=== PATIENT | male | born 2005 | race African-American/Black ===

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

== ENCOUNTER 2023-04-07 16:31 | Inpatient (IN) | payer BC ==
--- NOTE | 2023-04-07 16:37 | ED ---
Psych HPI - General Source: patient, RN notes reviewed Mode of arrival: ambulatory Limitations: no limitations - History of Present Illness MD Complaint: suicidal ideation <Laura Cook - Last Filed: 04/07/23 16:33> - General Source: patient, RN notes reviewed Mode of arrival: ambulatory Limitations: no limitations <Mark Sky - Last Filed: 04/07/23 20:02> - General Chief Complaint: Psychiatric Symptoms Stated Complaint: Suicidal Time Seen by Provider: 04/07/23 16:33 - History of Present Illness Initial Comments: This is a 17 year old male who presents to the emergency department for suicidal ideations. Denies any specific plans, states that he would do whatever comes to mind. This has been a long standing issue for him. (Laura Cook) Patient is a pleasant 17-year-old male presenting to the emergency department with depression. Patient has been depressed for a long time. Patient has felt more suicidal recently. Patient did put a knife up to his throat with thoughts of cutting himself. Patient did not cut himself. No homicidal thoughts. Patient has been taking his medications. Patient occasionally sees flashes and are unclear what they are. No physical complaints. (Mark Sky) - Related Data Home Medications Medication Instructions Recorded Confirmed ARIPiprazole [Abilify] 5 mg PO HS 04/07/23 04/07/23 Sertraline HCl [Zoloft] 50 mg PO DAILY 04/07/23 04/07/23 Allergies Allergy/AdvReac Type Severity Reaction Status Date / Time No Known Allergies Allergy Verified 04/07/23 16:33 Review of Systems ROS Other: All systems not noted in ROS Statement are negative. <Laura Cook - Last Filed: 04/07/23 16:33> ROS Other: All systems not noted in ROS Statement are negative. Constitutional: Denies: fever Eyes: Denies: eye pain ENT: Denies: ear pain Respiratory: Denies: cough Cardiovascular: Denies: chest pain Psychiatric: Reports: as per HPI, depression, suicidal thoughts <Mark Sky - Last Filed: 04/07/23 20:02> ROS Statement: Those systems with pertinent positive or pertinent negative responses have been documented in the HPI. Past Medical History Past Medical History: No Reported History History of Any Multi-Drug Resistant Organisms: None Reported Past Surgical History: No Surgical Hx Reported Past Psychological History: Depression Past Alcohol Use History: None Reported Past Drug Use History: None Reported <Laura Cook - Last Filed: 04/07/23 16:33> General Exam <Laura Cook - Last Filed: 04/07/23 16:33> Limitations: no limitations General appearance: alert Head exam: Present: normocephalic Eye exam: Present: normal appearance Neck exam: Present: normal inspection Respiratory exam: Present: normal lung sounds bilaterally Cardiovascular Exam: Present: regular rate, normal rhythm GI/Abdominal exam: Present: soft. Absent: tenderness Extremities exam: Present: normal inspection Neurological exam: Present: alert. Absent: motor sensory deficit Psychiatric exam: Present: depressed Skin exam: Present: normal color. Absent: abrasion <Mark Sky - Last Filed: 04/07/23 20:02> - General Exam Comments Initial Comments: Visual Physical Exam Vital signs reviewed General: Well-appearing, nontoxic, no acute distress. Head: Normocephalic, atraumatic Eyes: PERRLA, EOMI ENT: Airway patent Chest: Nonlabored breathing Skin: No visual rash, normal skin tone Neuro: Alert and oriented 3 Musculoskeletal: No gross abnormalities I performed the QuickNote portion of this chart. Signed Laura Cook PA-C. (Laura Cook) Course Vital Signs 04/07/23 16:33 Temperature 97.7 F Pulse Rate 96 Respiratory 16 Rate Blood Pressure 141/90 O2 Sat by Pulse 96 Oximetry Medical Decision Making <Mark Sky - Last Filed: 04/07/23 20:02> - Medical Decision Making Was pt. sent in by a medical professional or institution (JULIANA Barahona, [employer], urgent care, hospital, or group home...) When possible be specific @ -No Did you speak to anyone other than the patient for history (EMS, parent, family, police, friend...)? What history was obtained from this source @ -No Did you review nursing and triage notes (agree or disagree)? Why? @ -I reviewed and agree with nursing and triage notes Were old charts reviewed (outside hosp., previous admission, EMS record, old EKG, old radiological studies, urgent care reports/EKG's, group home records)? Report findings @ -No old charts were reviewed Differential Diagnosis (chest pain, altered mental status, abdominal pain women, abdominal pain men, vaginal bleeding, weakness, fever, dyspnea, syncope, headache, dizziness, GI bleed, back pain, seizure, CVA, palpatations, mental health, musculoskeletal)? @ -Differential Mental Health Depression, anxiety, bipolar, psychosis, schizophrenia, borderline personality, situational depression, adjustment disorder, behavioral disorder, brain tumor, malingering, substance abuse, encephalopathy, medication reaction, dementia, hypothyroidism, degenerative neurologic disorder, lupus.... This is not meant to be all-inclusive list EKG interpreted by me (3pts min.). @ -As above X-rays interpreted by me (1pt min.). @ -None done CT interpreted by me (1pt min.). @ -None done U/S interpreted by me (1pt. min.). @ -None done What testing was considered but not performed or refused? (CT, X-rays, U/S, labs)? Why? @ -None What meds were considered but not given or refused? Why? @ -None Did you discuss the management of the patient with other professionals (india patterson i.e. , PA, H[employer]ER, lab, RT, psych nurse, social science instructor, clay thrower, teacher, employment officer, behavioral health case manager)? Give summary @ -Case was discussed with mental health nurse, plan and disposition. Was smoking cessation discussed for >3mins.? @ -No Was critical care preformed (if so, how long)? @ -No Were there social determinants of health that impacted care today? How? (Homelessness, low income, unemployed, alcoholism, drug addiction, transportation, low edu. Level, literacy, decrease access to med. care, intermediate, rehab)? @ -No Was there de-escalation of care discussed even if they declined (Discuss DNR or withdrawal of care, Hospice)? DNR status @ -No What co-morbidities impacted this encounter? (DM, HTN, Smoking, COPD, CAD, Cancer, CVA, ARF, Chemo, Hep., AIDS, mental health diagnosis, sleep apnea, morbid obesity)? @ -None Was patient admitted / discharged? Hospital course, mention meds given and route, prescriptions, significant lab abnormalities, going to OR and other pertinent info. @ -Patient will be admitted for mental health care. Undiagnosed new problem with uncertain prognosis? @ -No Drug Therapy requiring intensive monitoring for toxicity (Heparin, Nitro, Insulin, Cardizem)? @ -No Were any procedures done? @ -No Diagnosis/symptom? @ -Depression, suicidal ideation Acute, or Chronic, or Acute on Chronic? @ -Acute, acute Uncomplicated (without systemic symptoms) or Complicated (systemic symptoms)? @ -default Side effects of treatment? @ -No Exacerbation, Progression, or Severe Exacerbation? @ -No Poses a threat to life or bodily function? How? (Chest pain, USA, PA, pneumonia, PE, COPD, DKA, ARF, appy, cholecystitis, CVA, Diverticulitis, Homicidal, Suicidal, threat to staff... and all critical care pts) @ -No (Mark Sky) - Lab Data Lab Results 04/07/23 Range/Units 17:46 Urine Opiates Screen Not Detected (NotDetected) Ur Oxycodone Screen Not Detected (NotDetected) Urine Methadone Screen Not Detected (NotDetected) Ur Propoxyphene Screen Not Detected (NotDetected) Ur Barbiturates Screen Not Detected (NotDetected) U Tricyclic Antidepress Not Detected (NotDetected) Ur Phencyclidine Scrn Not Detected (NotDetected) Ur Amphetamines Screen Not Detected (NotDetected) U Methamphetamines Scrn Not Detected (NotDetected) U Benzodiazepines Scrn Not Detected (NotDetected) Urine Cocaine Screen Not Detected (NotDetected) U Marijuana (THC) Screen Detected H (NotDetected) Disposition <Laura Cook - Last Filed: 04/07/23 16:33> Is patient prescribed a controlled substance at d/c from ED?: No Time of Disposition: 20:02 <Mark Sky - Last Filed: 04/07/23 20:02> Clinical Impression: Depression, Suicidal ideation Disposition: TRANSFER TO PSYCH HOSP/UNIT Referrals: Varinder Davis DO [Primary Care Provider] - 1-2 days
[2023-04-07 18:15] LABS: Amphetamine Screen,Urine Not Detected (NotDetected); Barbiturate Screen,Urine Not Detected (NotDetected); Benzodiazepines Screen,Urine Not Detected (NotDetected); Cocaine Screen,Urine Not Detected (NotDetected); Methadone Screen, Urine Not Detected (NotDetected); Opiate Screen,Urine Not Detected (NotDetected); Oxycodone Screen, Urine Not Detected (NotDetected); Phencyclidine Screen,Urine Not Detected (NotDetected); Tricyclic Antidepressant,Urine Not Detected (NotDetected); Urn Cannabinoid Scrn Detected (NotDetected)
[2023-04-07] MEDS ORDERED: ACETAMINOPHEN TAB 325 MG TAB PO PRN (22:17)
[2023-04-07] MEDS ORDERED: LORazepam 1 MG TAB PO PRN (22:17)
[2023-04-07] MEDS ORDERED: MAG HYDROX/AL HYDROX/SIMETH 30 ML CUP PO PRN (22:17)
[2023-04-07] MEDS ORDERED: LORazepam 2 MG/ML INJ IM PRN (22:17)
[2023-04-07] MEDS ORDERED: traZODone HCL 50 MG TAB PO PRN (22:17)
[2023-04-07] MEDS ORDERED: MAGNESIUM HYDROXIDE 2,400 MG/30 ML CUP PO PRN (22:17)
[2023-04-07 23:07] LABS: Amorphous Sediment,Urine Occasional /hpf; Appearance,Urine Cloudy (Clear); Bilirubin,Urine Negative (Negative); Blood,Urine Negative (Negative); Color,Urine Yellow; Glucose,Urine (UA) Negative (Negative); Hyaline Casts,Urine 1 /lpf (0-2); Ketones,Urine Negative (Negative); Leukocyte Esterase,Urine Negative (Negative); Mucus,Urine Few /hpf; Nitrite,Urine Negative (Negative); Protein,Urine Negative (Negative); Specific Gravity,Urine 1.027 (1.001-1.035); Urobilinogen,Urine <2.0 mg/dL (<2.0); WBC,Urine 1 /hpf (0-5)
[2023-04-08] MEDS ORDERED: SERTRALINE 50 MG TAB PO SCH (09:00)
[2023-04-08 09:38] LABS: Basophils % (A) 0 %; Eosinophils # (A) 0.1 k/uL (0-0.7); Eosinophils % (A) 2 %; HCT 47.1 % (39.0-53.0); HGB 14.5 gm/dL (13.0-17.5); Hypochromasia Slight; Lymphocytes # (A) 2.5 k/uL (1.0-4.8); Lymphocytes % (A) 43 %; MCH 27.8 pg (25.0-35.0); MCHC 30.9 g/dL (31.0-37.0); MCV 90.1 fL (80.0-100.0); Monocytes # (A) 0.3 k/uL (0-1.0); Monocytes % (A) 6 %; Neutrophils # (A) 2.7 k/uL (1.3-7.7); Neutrophils % (A) 47 %; Platelet Count 316 k/uL (150-450); RBC 5.23 m/uL (4.30-5.90); RDW 14.7 % (11.5-15.5); WBC 5.7 k/uL (4.0-11.0)
[2023-04-08 10:02] LABS: ALT 14 U/L (4-49); AST 21 U/L (17-59); African American GFR (CKD) >90 (>60 ml/min/1.73 sqM); Albumin 4.6 g/dL (3.5-5.0); Alkaline Phosphatase 82 U/L (38-126); Anion Gap 11 mmol/L; Bilirubin, Delta 0.2 mg/dL (0.0-0.2); Bilirubin,Unconjugated 0.1 mg/dL (0.0-1.1); Blood Urea Nitrogen 11 mg/dL (9-20); Calcium 9.3 mg/dL (8.4-10.2); Carbon Dioxide 28 mmol/L (22-30); Chloride 101 mmol/L (98-107); Glucose 106 mg/dL (74-99); Non-African American GFR(CKD) >90 (>60 ml/min/1.73 sqM); Potassium 4.3 mmol/L (3.5-5.1); Sodium 140 mmol/L (137-145); Total Bilirubin 0.3 mg/dL (0.2-1.3); Total Protein 8.5 g/dL (6.3-8.2)
[2023-04-08] MEDS ORDERED: SERTRALINE 25 MG TAB PO ONE (11:45)
--- NOTE | 2023-04-08 11:52 | P.MDCNMH ---
History of Present Illness H&P Date: 04/08/23 This is a 17-year-old male who presented to the emergency department with increasing thoughts of suicidal ideation with no real plan. Patient admitted voluntarily to the mental health unit for further psychiatric evaluation. Patient reports he follows with Dr. Dawn Argueta in the outpatient setting with no significant past medical history other than depression. Patient reports he does not use alcohol or drugs and denies smoking. Patient's urine drug screen was positive for marijuana. Patient's other labs reviewed and within normal limits. Patient was taking Zoloft and Abilify outpatient and reports he was compliant with medications. Patient reports he has not seen Dr. Dawn meadows in quite some time. When asked if patient follows with [facility] he reported it was Dr. Davis. Vital signs reviewed and blood pressure mildly elevated will obtain EKG and other labs within normal limits. Patient denies chest pain or shortness of breath reports is tolerating diet with no reported nausea or vomiting. Patient reports to going to the bathroom with no difficulties and denies any burning or pain with urination. Review Of Systems: Constitutional: No fever, no chills, no night sweats. No weight change. No weakness, fatigue or lethargy. No daytime sleepiness. EENT: No headache. No blurred vision or double vision, no loss of vision. No loss of Hearing, no ringing in the ears, no dizziness. No nasal drainage or congestion. No epistaxis. No sore throat. Lungs: No shortness of breath, cough, no sputum production. No wheezing. Cardiovascular: No chest pain, no lower extremity edema. No palpitations. No paroxysmal nocturnal dyspnea. No orthopnea. No lightheadedness or dizziness. No syncopal episodes. Abdominal: No abdominal pain. No nausea, vomiting. No diarrhea. No constipation. No bloody or tarry stools.. No loss of appetite. Genitourinary: No dysuria, increased frequency, urgency. No urinary retention. Musculoskeletal: No myalgias. No muscle weakness, no gait dysfunction, no frequent falls. No back pain. No neck pain. Integumentary: No wounds, no lesions. No rash or pruritus. No unusual bruising. No change in hair or nails. Neurologic: No aphasia. No facial droop. No change in mentation. No head injury. No headache. No paralysis. No paresthesia. Psychiatric: Reports increased depression with suicidal ideation. Reports anxiety. No mood swings. Endocrine: No abnormal blood sugars. No weight change. No excessive sweating or thirst. No cold intolerance. PHYSICAL EXAMINATION: GENERAL: The patient is alert and oriented x4, Well developed, well nourished. Obese HEENT: Pupils are round and equally reacting to light. EOMI. no scleral icterus. No conjunctival pallor. Normocephalic, atraumatic. No pharyngeal erythema. No t hyromegaly. CARDIOVASCULAR: S1 and S2 muffled PULMONARY: Breath sounds are clear to auscultation bilaterally with no wheezing or rhonchi noted. ABDOMEN: soft. Nontender on exam. obese. non-distended, normoactive bowel sounds. No palpable organomegaly. MUSCULOSKELETAL: No joint swelling or deformity. EXTREMITIES: No cyanosis, clubbing, or pedal edema. NEUROLOGICAL: Gross neurological examination did not reveal any focal deficits. SKIN: No rashes. Assessment: Depression with suicidal ideation. History of depression Obesity with a BMI of 38.0 Marijuana positive on drug screen Full code Plan: Patient is admitted voluntarily to the [facility] psychiatric unit for further evaluation for suicidal ideation Patient's labs reviewed within normal limits and blood pressure mildly elevated would recommend EKG and basic labs, TSH ordered and pending Patient encouraged to attend group therapy sessions and compliance with medications along with psychiatric evaluation Patient urine drug screen was positive for marijuana although patient denies using any drugs Thank you for this consultation. The impression and plan of care has been dictated by nurse josephine Lemon as directed. Dr. Andressa MD I have performed a history and examination and MDM of this patient, discussed the same with the dictator, and agree with the dictator's assessment and plan as written ,documented as a scribe. Based on total visit time, I have performed more than 50% of the visit. Any additional findings or plans will be noted. Past Medical History Past Medical History: No Reported History Additional Past Medical History / Comment(s): suicidal ideation History of Any Multi-Drug Resistant Organisms: None Reported Past Surgical History: No Surgical Hx Reported Past Psychological History: Depression Smoking Status: Never smoker Past Alcohol Use History: None Reported Past Drug Use History: None Reported Medications and Allergies Home Medications Medication Instructions Recorded Confirmed Type ARIPiprazole [Abilify] 5 mg PO HS 04/07/23 04/07/23 History Sertraline HCl [Zoloft] 50 mg PO DAILY 04/07/23 04/07/23 History Allergies Allergy/AdvReac Type Severity Reaction Status Date / Time No Known Allergies Allergy Verified 04/08/23 03:50 Physical Exam Vitals: Vital Signs Temp Pulse Pulse Resp BP BP Pulse Ox 04/07/23 23:37 98.0 F 69 18 130/60 96 04/07/23 16:33 97.7 F 96 16 141/90 96 Intake and Output 04/07/23 04/08/23 04/08/23 22:59 06:59 14:59 Other: Weight 113.398 kg 113.398 kg Cranial Nerve Examination - Cranial Nerves Cranial Nerve I- Olfactory: Intact Cranial Nerve II- Optic: Intact Cranial Nerve III- Oculomotor: Intact Cranial Nerve IV- Trochlear: Intact Cranial Nerve V- Trigeminal: Intact Cranial Nerve - Abducens: Intact Cranial Nerve VII- Facial: Intact Cranial Nerve VIII- Auditory: Intact Cranial Nerve IX- Glossopharyngeal: Intact Cranial Nerve X- Vagus: Intact Cranial Nerve XI- Accessory: Intact Cranial Nerve XII- Hypoglossal: Intact Results CBC & Chem 7: 04/08/23 08:35 04/08/23 08:35 Labs: Abnormal Lab Results - Last 24 Hours (Table) 04/07/23 04/07/23 Range/Units 17:46 17:46 Amorphous Sediment Occasional H (None) /hpf Urine Mucus Few H (None) /hpf U Marijuana (THC) Screen Detected H (NotDetected) Assessment and Plan Time with Patient: Less than 30
[2023-04-08] MEDS: ZIPRASIDONE 20 MG CAP PO SCH ×2 (13:21→21:09)
--- NOTE | 2023-04-08 13:56 | P.HP ---
Psychiatric H&P - . H&P Date: 04/08/23 History & Physical: Allergies Allergy/AdvReac Type Severity Reaction Status Date / Time No Known Allergies Allergy Verified 04/08/23 03:50 Vital Signs Temp 98.0 F 04/07/23 23:37 Pulse 69 04/07/23 23:37 Resp 18 04/07/23 23:37 BP 130/60 04/07/23 23:37 Pulse Ox 96 04/07/23 23:37 FiO2 Intake & Output 04/07/23 04/08/23 04/08/23 18:59 06:59 18:59 Weight 113.398 kg 113.398 kg Laboratory Last Values WBC 5.7 k/uL (4.0-11.0) 04/08/23 08:35 RBC 5.23 m/uL (4.30-5.90) 04/08/23 08:35 Hgb 14.5 gm/dL (13.0-17.5) 04/08/23 08:35 Hct 47.1 % (39.0-53.0) 04/08/23 08:35 MCV 90.1 fL (80.0-100.0) 04/08/23 08:35 MCH 27.8 pg (25.0-35.0) 04/08/23 08:35 MCHC 30.9 g/dL (31.0-37.0) L 04/08/23 08:35 RDW 14.7 % (11.5-15.5) 04/08/23 08:35 Plt Count 316 k/uL (150-450) 04/08/23 08:35 MPV 8.0 04/08/23 08:35 Neutrophils % 47 % 04/08/23 08:35 Lymphocytes % 43 % 04/08/23 08:35 Monocytes % 6 % 04/08/23 08:35 Eosinophils % 2 % 04/08/23 08:35 Basophils % 0 % 04/08/23 08:35 Neutrophils # 2.7 k/uL (1.3-7.7) 04/08/23 08:35 Lymphocytes # 2.5 k/uL (1.0-4.8) 04/08/23 08:35 Monocytes # 0.3 k/uL (0-1.0) 04/08/23 08:35 Eosinophils # 0.1 k/uL (0-0.7) 04/08/23 08:35 Basophils # 0.0 k/uL (0-0.2) 04/08/23 08:35 Hypochromasia Slight 04/08/23 08:35 Sodium 140 mmol/L (137-145) 04/08/23 08:35 Potassium 4.3 mmol/L (3.5-5.1) 04/08/23 08:35 Chloride 101 mmol/L (98-107) 04/08/23 08:35 Carbon Dioxide 28 mmol/L (22-30) 04/08/23 08:35 Anion Gap 11 mmol/L 04/08/23 08:35 BUN 11 mg/dL (9-20) 04/08/23 08:35 Creatinine 0.81 mg/dL (0.66-1.25) 04/08/23 08:35 Est GFR (CKD-EPI)AfAm >90 (>60 ml/min/1.73 sqM) 04/08/23 08:35 Est GFR (CKD-EPI)NonAf >90 (>60 ml/min/1.73 sqM) 04/08/23 08:35 Glucose 106 mg/dL (74-99) H 04/08/23 08:35 Calcium 9.3 mg/dL (8.4-10.2) 04/08/23 08:35 Total Bilirubin 0.3 mg/dL (0.2-1.3) 04/08/23 08:35 Conjugated Bilirubin 0.0 mg/dL (0.0-0.3) 04/08/23 08:35 Unconjugated Bilirubin 0.1 mg/dL (0.0-1.1) 04/08/23 08:35 Delta Bilirubin 0.2 mg/dL (0.0-0.2) 04/08/23 08:35 AST 21 U/L (17-59) 04/08/23 08:35 ALT 14 U/L (4-49) 04/08/23 08:35 Alkaline Phosphatase 82 U/L (38-126) 04/08/23 08:35 Total Protein 8.5 g/dL (6.3-8.2) H 04/08/23 08:35 Albumin 4.6 g/dL (3.5-5.0) 04/08/23 08:35 TSH 3.200 mIU/L (0.465-4.680) 04/08/23 08:35 Urine Color Yellow 04/07/23 17:46 Urine Appearance Cloudy (Clear) 04/07/23 17:46 Urine pH 7.0 (5.0-8.0) 04/07/23 17:46 Ur Specific [place] 1.027 (1.001-1.035) 04/07/23 17:46 Urine Protein Negative (Negative) 04/07/23 17:46 Urine Glucose (UA) Negative (Negative) 04/07/23 17:46 Urine Ketones Negative (Negative) 04/07/23 17:46 Urine Blood Negative (Negative) 04/07/23 17:46 Urine Nitrite Negative (Negative) 04/07/23 17:46 Urine Bilirubin Negative (Negative) 04/07/23 17:46 Urine Urobilinogen <2.0 mg/dL (<2.0) 04/07/23 17:46 Ur Leukocyte Esterase Negative (Negative) 04/07/23 17:46 Urine WBC 1 /hpf (0-5) 04/07/23 17:46 Amorphous Sediment Occasional /hpf (None) H 04/07/23 17:46 Hyaline Casts 1 /lpf (0-2) 04/07/23 17:46 Urine Mucus Few /hpf (None) H 04/07/23 17:46 Urine Opiates Screen Not Detected (NotDetected) 04/07/23 17:46 Ur Oxycodone Screen Not Detected (NotDetected) 04/07/23 17:46 Urine Methadone Screen Not Detected (NotDetected) 04/07/23 17:46 Ur Propoxyphene Screen Not Detected (NotDetected) 04/07/23 17:46 Ur Barbiturates Screen Not Detected (NotDetected) 04/07/23 17:46 U Tricyclic Antidepress Not Detected (NotDetected) 04/07/23 17:46 Ur Phencyclidine Scrn Not Detected (NotDetected) 04/07/23 17:46 Ur Amphetamines Screen Not Detected (NotDetected) 04/07/23 17:46 U Methamphetamines Scrn Not Detected (NotDetected) 04/07/23 17:46 U Benzodiazepines Scrn Not Detected (NotDetected) 04/07/23 17:46 Urine Cocaine Screen Not Detected (NotDetected) 04/07/23 17:46 U Marijuana (THC) Screen Detected (NotDetected) H 04/07/23 17:46 Coronavirus (PCR) Not Detected (Not Detectd) 04/07/23 20:15 04/08/23 11:45 IDENTIFYING DATA: Patient is a [17-year-old -[place] male], currently lives with his grandmother in a house, he works in a factory. HPI: Patient presented to the hospital yesterday and was endorsing depression and suicidal ideations and apparently pulled a knife on himself while at work. Patient was seen today in agreeable to speak to movie writer. Patient appeared to be fairly friendly and pleasant. He has an inappropriate affect when speaking about his depression and suicidal thoughts. He claims he has been feeling depressed and suicidal on and off her several years now. He claims that his main trigger was "being outdoors" and when asked to elaborate more he states that being in public and other people is fairly stressful for him. He claims that at his job he pulled a knife out on himself and try to cut himself in his throat. He states that his coworkers stopped him and took him to human resources who called to have him brought to the hospital. He states that things at home are okay and denied any issues with his family members. He does not endorse any other stressors. He claims that his mood is "calmer and cooperative" and denying any current depression. He states that he does have trouble sometimes with impulse control. States that his sleep and appetite are fair. Patient denies any suicidal or homicidal ideations intent or plan. At this time patient denies any auditory or visual hallucinations. Patient denies any flight of ideas racing thoughts and increased in goal directed behavior. Patient admits to using no recreational drugs or substances PAST PSYCHIATRIC HISTORY: Patient states that he has a history of depression and anxiety. Patient was previously on Abilify and Zoloft. He was last psychiatrically hospitalized at [facility] in 2019 and previous to that hospitalized at [facility] in 2018. [Patient denies any psychiatric outpatient follow-up.] [Patient denies any history of suicide attempts in the past.] PMH:as per ED note ALLERGIES: as per EMR CHEMICAL DEPENDENCY HISTORY: as per HPI FAMILY PSYCHIATRIC/SUBSTANCE USE HISTORY: Claims that there is depression that runs in his family. SOCIAL HISTORY: Patient was born and raised in [facility] and states that he currently lives with his grandmother in a house, he works in a factory. He is single and unmarried. He denies any legal history. MENTAL STATUS EXAM: General Appearance: Patient appears to be mildly overweight, stated age is alert, [directable, and attempts to cooperate]. Smiles quite frequently, Patient appears to have fair hygiene and grooming. Behavior: Patient is seated without any agitated behavior. Bright and pleasant. Speech: Patient's speech is [fluent and nonpressured.] [place]. Mood/Affect: Patient reports their mood is ["calmer now"], affect is congruent Suicidality/Homicidality: Patient denies having any homicidal ideation intent or plan. [Denies any suicidal ideations intent or plan] Perceptions: Patient denies any visual hallucinations [and denies any auditory hallucinations] Though content/process: [There is no evidence of any delusional thought content and thought process is linear and goal-directed.] [place], vague. Memory and concentration: AOX3, grossly intact for the purposes of this session. Can spell "WORLD" backwards Judgment and insight: [poor] STRENGTHS/WEAKNESSES: strength is that patient is [resilient]. Weakness is that patient [has poor judgment and is impulsive] INTELLECT: [average] IMPRESSIONS: Mood disorder unspecified, rule out bipolar disorder versus major depressive PLAN: -Patient is admitted under [voluntary] status to MHU for stabilization of psychiatric symptoms and safety. Patient has signed [adult voluntary form and] [medication consent] and is placed in patient's chart. -Medications : zoloft 75 mg daily for mood/anxiety, geodon 20 mg bid for mood stabilization. ordered ekg -Ativan [and Haldol] PRN for agitation/aggression [-Patient was counselled on substance abuse and desired to cut back on use] -Patient was informed of the risks, benefits and side effects of the medication and patient verbally consented to taking the medications. Patient signed med consent form and was placed in chart. -Internal Medicine consult to perform medical evaluation and physical. -NRT - not needed as patient does not smoke -SW on board for discharge planning. Encourage patient to participate in groups to work on coping skills. 04/08/23 13:50 04/08/23 13:55
[2023-04-08 15:51] LABS: Chol/HDL Ratio 3.53 Ratio; LDL Cholesterol,Calculated 92.3 mg/dL (0.0-131.0)
[2023-04-09] MEDS ORDERED: SERTRALINE 25 MG TAB PO SCH (09:00)
[2023-04-09] MEDS: ZIPRASIDONE 20 MG CAP PO SCH (09:33)
--- NOTE | 2023-04-09 11:51 | P.PN ---
Progress Note - Text Progress Note Date: 04/09/23 Interval History: Patient was seen lying in his bed today and was directable and agreeable to sp gracie with pattern chart writer in the office. Patient appears to be somewhat tired and states that he had a difficult time sleeping last night. He continues to mainly isolated in his room and not go to many groups. He states that he was feeling a bit tired yesterday after taking the medications. We spoke about changing the medications nighttime dosing. He asked about his lab work we reviewed it. We also reviewed his EKG. He states that his mood and anxiety have been mildly improving with the medications and is agreeable to continue with treatment. He was asking about visiting hours and his family will come to see him today. At this time patient denies any suicidal or homical ideations, intent or plan. Patient denies any auditory, visual hallucinations and denies any paranoia or delusions. Patient denies any side effects from the medications and has been compliant with meds. Mental Status Exam: general Appearance: Patient appears to be mildly overweight, stated age is alert, directable, and attempts to cooperate. Smiles quite frequently, Patient appears to have fair hygiene and grooming. Appears to be somewhat tired. Behavior: Patient is seated without any agitated behavior. Bright and pleasant. Speech: Patient's speech is fluent and nonpressured. Maurice. Mood/Affect: Patient reports their mood is "a bit better ", affect is congruent and improving Suicidality/Homicidality: Patient denies having any homicidal ideation intent or plan. Denies any suicidal ideations intent or plan Perceptions: Patient denies any visual hallucinations and denies any auditory hallucinations Though content/process: There is no evidence of any delusional thought content and thought process is linear and goal-directed. Maurice Memory and concentration: AOX3, grossly intact for the purposes of this session Judgment and insight: Limited, improving moderately. 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 Patient has signed adult voluntary form and medication consent and is placed in patient's chart. -Medications : increase zoloft 100 mg qhs for mood/anxiety, change geodon 40 mg qhs for mood stabilization. reviewed ekg -Ativan and Haldol PRN for agitation/aggression -NRT - not needed as patient does not smoke -SW on board for discharge planning. Encourage patient to participate in groups to work on coping skills. likely discharge friday back home.
[2023-04-09] MEDS: ZIPRASIDONE 40 MG CAP PO SCH (20:47)
[2023-04-09] MEDS: SERTRALINE 100 MG TAB PO SCH (20:47)
[2023-04-10 06:50] VITALS: TEMP 97.9
--- NOTE | 2023-04-10 11:13 | P.PN ---
Progress Note - Text Progress Note Date: 04/10/23 Interval History: Patient was seen talking to another patient today in the hallway and was agree able to seek to automatic typewriter inspector. He appeared to have no improvement in schizoaffective. States that he is feeling "better". States that medications are helping him sleep more throughout the night and feels less tired during the day. He states that he is trying to go to groups and participate. He claims that his grandmother came to visit him yesterday and that went well. He was fairly thankful for the help that he is receiving. He asked more questions about follow-up and medications. At this time patient denies any suicidal or homical ideations, intent or plan. Patient denies any auditory, visual hallucinations and denies any paranoia or delusions. Patient denies any side effects from the medications and has been compliant with meds. Mental Status Exam: general Appearance: Patient appears to be mildly overweight, stated age is alert, directable, and attempts to cooperate. Smiles quite frequently, Patient appears to have fair hygiene and grooming. Behavior: Patient is seated without any agitated behavior. Bright and pleasant. Speech: Patient's speech is fluent and nonpressured. Mood/Affect: Patient reports their mood is "good ", affect is congruent and improving Suicidality/Homicidality: Patient denies having any homicidal ideation intent or plan. Denies any suicidal ideations intent or plan Perceptions: Patient denies any visual hallucinations and denies any auditory hallucinations Though content/process: There is no evidence of any delusional thought content and thought process is linear and goal-directed Memory and concentration: AOX3, grossly intact for the purposes of this session Judgment and insight: Limited, improving mildly IMPRESSIONS: Bipolar disorder, current episode depressed PLAN: -Patient is admitted under voluntary status to MHU for stabilization of psychiatric symptoms and safety. Patient has signed adult voluntary form and medication consent and is placed in patient's chart. -Medications : zoloft 100 mg qhs for mood/anxiety, geodon 40 mg qhs for mood stabilization. reviewed ekg. trazodone 50 mg qhs for insomnia/mood -Ativan and Haldol PRN for agitation/aggression -NRT - not needed as patient does not smoke -SW on board for discharge planning. Encourage patient to participate in groups to work on coping skills. likely discharge tomorrow back home.
[2023-04-10] MEDS ORDERED: traZODone HCL 50 MG TAB PO SCH (21:00)
[2023-04-10] MEDS: SERTRALINE 100 MG TAB PO SCH (21:11)
[2023-04-10] MEDS: ZIPRASIDONE 40 MG CAP PO SCH (21:11)
[2023-04-11 06:58] VITALS: BP 144/94; PULSE 79; RESP 14
--- NOTE | 2023-04-11 10:38 | P.DS ---
Providers Date of admission: 04/07/23 22:00 Expected date of discharge: 04/11/23 Attending physician: Jese Cosme MD Consults: 04/07/23 22:17 Consult Physician Routine Consulting Provider: Tahmina Ayers Consult Reason/Comments: H&P, medical follow up Do you want consulting provider notified?: Yes, Notify in am Primary care physician: Varinder Davis - Discharge Diagnosis(es) (1) Bipolar disorder current episode depressed Current Visit: Yes Status: Acute Priority: High Hospital Course: Admission HPI: Admission note was completed by health underwriter "Patient is a 17-year-old - [place] male, currently lives with his grandmother in a house, he works in a factory. Patient presented to the hospital yesterday and was endorsing depression and suicidal ideations and apparently pulled a knife on himself while at work. Patient was seen today in agreeable to speak to health underwriter. Patient appeared to be fairly friendly and pleasant. He has an inappropriate affect when speaking about his depression and suicidal thoughts. He claims he has been feeling depressed and suicidal on and off her several years now. He claims that his main trigger was "being outdoors" and when asked to elaborate more he states that being in public and other people is fairly stressful for him. He claims that at his job he pulled a knife out on himself and try to cut himself in his throat. He states that his coworkers stopped him and took him to human resources who called to have him brought to the hospital. He states that things at home are okay and denied any issues with his family members. He does not endorse any other stressors. He claims that his mood is "calmer and cooperati ve" and denying any current depression. He states that he does have trouble sometimes with impulse control. States that his sleep and appetite are fair. Patient denies any suicidal or homicidal ideations intent or plan. At this time patient denies any auditory or visual hallucinations. Patient denies any flight of ideas racing thoughts and increased in goal directed behavior. Patient admits to using no recreational drugs or substances." Hospital course: Upon admission to the unit patient was directable and agreeable to commence treatment and signed adult voluntary form . Patient got along well with other patients on the unit and followed unit protocol. Patient was compliant with the medications and denied any side effects throughout hospital course. Patient was started on Geodon and increased the dose of 40 mg daily at bedtime for mood stabilization/depression, Zoloft 100 mg daily at bedtime for mood/anxiety, trazodone 50 mg daily at bedtime for insomnia/mood. Performed EKG to check QTc interval. Patient spoke of his stressors and engaged in therapy both group and individual. Patient was also seen by medical team for history and physical exam. Throughout the course of the hospitalization patient gradually improved with regards to mood, anxiety, mood lability, sleep and became more future oriented with improved insight and judgment. On the day of discharge patient denied any suicidal or homicidal ideations intent or plan denied any auditory or visual hallucinations. Patient endorsed wanting to live for his health and family. The patient denied any access to guns or weapons. Patient denied any paranoia and did not endorse any delusions. Patient does not have a significant history of substance abuse and was counseled on abstaining from all substances including alcohol and marijuana. Patient was also counseled on the medications and need for regular compliance and was encouraged to follow-up with their outpatient appointment for mental health and also for primary care. Prior to discharge a family meeting will be arranged by director of social work to answer any questions and ensure safety upon discharge. Patient will be discharged today back to his grandmother's house, with follow-up at [facility]. Mental status exam: General Appearance: Patient appears to be mildly overweight, stated age is alert, pleasant, and cooperative. Patient is in no acute distress and has improved hygiene and grooming Behavior: Patient is calmly seated without any agitated behavior. Speech: Patient's speech is fluent and nonpressured. Mood/Affect: Patient reports their mood is "good", affect is congruent and euthymic. Suicidality/Homicidality: Patient denies having any suicidal or homicidal ideation intent or plan. Perceptions: Patient denies any auditory or visual hallucinations. Though content/process: There is no evidence of any delusional thought content and thought process is linear and goal-directed. more future oriented Memory and concentration: AOX3, grossly intact for the purposes of this session. Can spell "WORLD" backwards correctly. Judgment and insight: improved with guarded prognosis Impression: Bipolar disorder, current episode depressed Plan: -Continue with discharge today as patient has improved and stabilized psychiatrically and is not currently an imminent threat to himself and/or others. -Continue medications: Zoloft 100 mg daily at bedtime for mood/anxiety, Geodon 40 mg daily at bedtime for mood stabilization/depression, trazodone 50 mg daily at bedtime for insomnia/mood. -Patient was counseled on the need for medication compliance and appropriate follow-up at mental health and also primary care for medical issues. Patient verbalized understanding and agreed. -Social work to arrange for and conduct family meeting to ensure safety upon discharge and answer any questions/concerns. Social work also to arrange for patients follow up appointments for psychiatric care along with follow up with primary care provider. -Patient counseled on abstaining from recreational drugs and marijuana and alcohol. Was informed/educated on the adverse effects on their physical and mental health. Patient verbally agreed and understood. -Patient was instructed to return to the hospital or seek immediate medical care if their psychiatric or medical symptoms do worsen or reoccur. Allergies Allergy/AdvReac Type Severity Reaction Status Date / Time No Known Allergies Allergy Verified 04/08/23 03:50 Laboratory Results WBC 5.7 k/uL (4.0-11.0) 04/08/23 08:35 RBC 5.23 m/uL (4.30-5.90) 04/08/23 08:35 Hgb 14.5 gm/dL (13.0-17.5) 04/08/23 08:35 Hct 47.1 % (39.0-53.0) 04/08/23 08:35 MCV 90.1 fL (80.0-100.0) 04/08/23 08:35 MCH 27.8 pg (25.0-35.0) 04/08/23 08:35 MCHC 30.9 g/dL (31.0-37.0) L 04/08/23 08:35 RDW 14.7 % (11.5-15.5) 04/08/23 08:35 Plt Count 316 k/uL (150-450) 04/08/23 08:35 MPV 8.0 04/08/23 08:35 Neutrophils % 47 % 04/08/23 08:35 Lymphocytes % 43 % 04/08/23 08:35 Monocytes % 6 % 04/08/23 08:35 Eosinophils % 2 % 04/08/23 08:35 Basophils % 0 % 04/08/23 08:35 Neutrophils # 2.7 k/uL (1.3-7.7) 04/08/23 08:35 Lymphocytes # 2.5 k/uL (1.0-4.8) 04/08/23 08:35 Monocytes # 0.3 k/uL (0-1.0) 04/08/23 08:35 Eosinophils # 0.1 k/uL (0-0.7) 04/08/23 08:35 Basophils # 0.0 k/uL (0-0.2) 04/08/23 08:35 Hypochromasia Slight 04/08/23 08:35 Sodium 140 mmol/L (137-145) 04/08/23 08:35 Potassium 4.3 mmol/L (3.5-5.1) 04/08/23 08:35 Chloride 101 mmol/L (98-107) 04/08/23 08:35 Carbon Dioxide 28 mmol/L (22-30) 04/08/23 08:35 Anion Gap 11 mmol/L 04/08/23 08:35 BUN 11 mg/dL (9-20) 04/08/23 08:35 Creatinine 0.81 mg/dL (0.66-1.25) 04/08/23 08:35 Est GFR (CKD-EPI)AfAm >90 (>60 ml/min/1.73 sqM) 04/08/23 08:35 Est GFR (CKD-EPI)NonAf >90 (>60 ml/min/1.73 sqM) 04/08/23 08:35 Glucose 106 mg/dL (74-99) H 04/08/23 08:[address] Glu mg/dL 126 mg/dL 04/08/23 08:35 Hemoglobin A1c 6.0 % (<=6.0) 04/08/23 08:35 Calcium 9.3 mg/dL (8.4-10.2) 04/08/23 08:35 Total Bilirubin 0.3 mg/dL (0.2-1.3) 04/08/23 08:35 Conjugated Bilirubin 0.0 mg/dL (0.0-0.3) 04/08/23 08:35 Unconjugated Bilirubin 0.1 mg/dL (0.0-1.1) 04/08/23 08:35 Delta Bilirubin 0.2 mg/dL (0.0-0.2) 04/08/23 08:35 AST 21 U/L (17-59) 04/08/23 08:35 ALT 14 U/L (4-49) 04/08/23 08:35 Alkaline Phosphatase 82 U/L (38-126) 04/08/23 08:35 Total Protein 8.5 g/dL (6.3-8.2) H 04/08/23 08:35 Albumin 4.6 g/dL (3.5-5.0) 04/08/23 08:35 Triglycerides 65.50 mg/dL (0.00-149.00) 04/08/23 08:35 Cholesterol 147.00 mg/dL (0.00-200.00) 04/08/23 08:35 LDL Cholesterol, Calc 92.3 mg/dL (0.0-131.0) 04/08/23 08:35 VLDL Cholesterol, Calc 13.10 mg/dL (5.00-40.00) 04/08/23 08:35 HDL Cholesterol 41.60 mg/dL (40.00-60.00) 04/08/23 08:35 Cholesterol/HDL Ratio 3.53 Ratio 04/08/23 08:35 TSH 3.200 mIU/L (0.465-4.680) 04/08/23 08:35 Urine Color Yellow 04/07/23 17:46 Urine Appearance Cloudy (Clear) 04/07/23 17:46 Urine pH 7.0 (5.0-8.0) 04/07/23 17:46 Ur Specific [place] 1.027 (1.001-1.035) 04/07/23 17:46 Urine Protein Negative (Negative) 04/07/23 17:46 Urine Glucose (UA) Negative (Negative) 04/07/23 17:46 Urine Ketones Negative (Negative) 04/07/23 17:46 Urine Blood Negative (Negative) 04/07/23 17:46 Urine Nitrite Negative (Negative) 04/07/23 17:46 Urine Bilirubin Negative (Negative) 04/07/23 17:46 Urine Urobilinogen <2.0 mg/dL (<2.0) 04/07/23 17:46 Ur Leukocyte Esterase Negative (Negative) 04/07/23 17:46 Urine WBC 1 /hpf (0-5) 04/07/23 17:46 Amorphous Sediment Occasional /hpf (None) H 04/07/23 17:46 Hyaline Casts 1 /lpf (0-2) 04/07/23 17:46 Urine Mucus Few /hpf (None) H 04/07/23 17:46 Urine Opiates Screen Not Detected (NotDetected) 04/07/23 17:46 Ur Oxycodone Screen Not Detected (NotDetected) 04/07/23 17:46 Urine Methadone Screen Not Detected (NotDetected) 04/07/23 17:46 Ur Propoxyphene Screen Not Detected (NotDetected) 04/07/23 17:46 Ur Barbiturates Screen Not Detected (NotDetected) 04/07/23 17:46 U Tricyclic Antidepress Not Detected (NotDetected) 04/07/23 17:46 Ur Phencyclidine Scrn Not Detected (NotDetected) 04/07/23 17:46 Ur Amphetamines Screen Not Detected (NotDetected) 04/07/23 17:46 U Methamphetamines Scrn Not Detected (NotDetected) 04/07/23 17:46 U Benzodiazepines Scrn Not Detected (NotDetected) 04/07/23 17:46 Urine Cocaine Screen Not Detected (NotDetected) 04/07/23 17:46 U Marijuana (THC) Screen Detected (NotDetected) H 04/07/23 17:46 Coronavirus (PCR) Not Detected (Not Detectd) 04/07/23 20:15 Vital Signs Temp 97.9 F 04/11/23 06:40 Pulse 79 04/11/23 06:40 Resp 14 04/11/23 06:40 BP 144/94 04/11/23 06:40 Pulse Ox 99 04/11/23 06:40 FiO2 Patient Condition at Discharge: Stable Plan - Discharge Summary Discharge Rx Participant: Yes New Discharge Prescriptions: New traZODone HCL [Desyrel] 50 mg PO HS 30 Days #30 tab Ziprasidone [Geodon] 40 mg PO HS 30 Days #30 cap Sertraline [Zoloft] 100 mg PO HS 30 Days #30 tab Discontinued Sertraline HCl [Zoloft] 50 mg PO DAILY ARIPiprazole [Abilify] 5 mg PO HS Discharge Medication List Sertraline [Zoloft] 100 mg PO HS 30 Days #30 tab 04/11/23 [Rx] Ziprasidone [Geodon] 40 mg PO HS 30 Days #30 cap 04/11/23 [Rx] traZODone HCL [Desyrel] 50 mg PO HS 30 Days #30 tab 04/11/23 [Rx] Follow up Appointment(s)/Referral(s): [facility] [Outside] - 04/17/23 3:00 pm (Intake) Varindre Davis DO [Primary Care Provider] - 1-2 days Activity/Diet/Wound Care/Special Instructions: Avoid the use of street drugs and alcohol. Take all medications as prescribed. When you are in need of refills on your medications, please contact your medical provider and/or outpatient psychiatrist/provider to have this done. Please go to your scheduled outpatient appointment for aftercare treatment. If symptoms return or become worse, call the crisis line at and/or go to the nearest emergency room for evaluation. National Suicide Hotline 605. Discharge Disposition: HOME SELF-CARE
== END 2023-04-11 14:17 | disposition home or self-care (01) | DRG 885 ==
LOC: EC 16:31 → 3MHU 22:00
PROVIDERS: ADMIT Psychiatry & Neurology Psychiatry; ATTEND Psychiatry & Neurology Psychiatry
DX: F31.30 Bipolar disorder, current episode depressed, mild or moderate severity, unspecified (principal); R45.851 Suicidal ideations; G47.00 Insomnia, unspecified; Z79.899 Other long term (current) drug therapy; Z20.822 Contact with and (suspected) exposure to COVID-19
CPT/HCPCS: 80053; 80061; 80306; 81001; 82075; 82248; 83036; 84443; 85025; 87635; 93005; 99285

== ENCOUNTER 2023-05-13 16:12 | Inpatient (IN) | payer OTHER, BC ==
--- NOTE | 2023-05-13 18:13 | ED ---
General Adult HPI - General Chief complaint: Psychiatric Symptoms Stated complaint: Mental Health Eval Time Seen by Provider: 05/13/23 16:23 Source: patient, RN notes reviewed, old records reviewed Mode of arrival: ambulatory Limitations: no limitations - History of Present Illness Initial comments: Patient is a 18-year-old male who presents emergency Department with family for psychiatric evaluation. States he is having auditory hallucinations that are telling him to hurt himself as well as family members. States he does have a history of psychiatric illness and has been taking his medications and seeing his therapist but states that the hallucinations have been worse lately. He states he did attempt to cut his left wrist with scissors and has a small uncomplicated laceration of the left wrist. Patient is up-to-date on vaccines including tetanus. Denies any homicidal ideations, Tums complaints currently. Denies any suicidal ideations, attempts, plans currently. Denies any visual hallucinations but is endorsing auditory hallucinations. Denies drug use. Has no physical complaints. Presents for further evaluation. States this has happened before and have been uncontrolled before. - Related Data Previous Rx's Medication Instructions Recorded Sertraline [Zoloft] 100 mg PO HS 30 Days #30 tab 04/11/23 Ziprasidone [Geodon] 40 mg PO HS 30 Days #30 cap 04/11/23 traZODone HCL [Desyrel] 50 mg PO HS 30 Days #30 tab 04/11/23 Allergies Allergy/AdvReac Type Severity Reaction Status Date / Time No Known Allergies Allergy Verified 05/14/23 15:43 Review of Systems ROS Statement: Those systems with pertinent positive or pertinent negative responses have been documented in the HPI. Review of Systems: CONST: Denies fever EYES: Denies blurry vision ENT: Denies nasal congestion C/V: Denies Chest pain RESP: Denies shortness of breath GI: Denies abdominal pain : Denies dysuria SKIN: Endorses small laceration to the left anterior wrist. Not actively bleeding. MSK: Denies joint pain. NEURO: Denies headache PSYCH: Denies current suicidal and homicidal ideations/plans/attempts. Denies visual or auditory hallucinations. ROS Other: All systems not noted in ROS Statement are negative. Past Medical History Past Medical History: No Reported History Additional Past Medical History / Comment(s): suicidal ideation History of Any Multi-Drug Resistant Organisms: None Reported Past Surgical History: No Surgical Hx Reported Past Psychological History: Depression Smoking Status: Never smoker Past Alcohol Use History: None Reported Past Drug Use History: None Reported General Exam - General Exam Comments Initial Comments: General: Appears in no acute distress. HEAD: Normal with no signs of head trauma. EYES: PERRLA, EOMI, conjunctiva normal, no discharge. ENT: Hearing grossly intact, normal oropharynx. RESPIRATORY: Clear breath sounds bilaterally. No wheezes, rales, or rhonchi. C/V: Regular rate and rhythm. S1 and S2 auscultated, no edema, peripheral pulses 2+ and intact throughout ABD: Abd is soft, nontender, nondistended EXT: Normal range of motion, no obvious deformity SKIN: Small approximately 1 cm superficial laceration to the anterior left wrist that was uncomplicated and does not require closure. No active bleeding. NEURO: Alert and oriented 4. Limitations: no limitations Course Vital Signs 05/13/23 05/13/23 05/14/23 16:16 17:42 09:00 Temperature 98.4 F Pulse Rate 88 86 75 Respiratory 20 16 17 Rate Blood Pressure 127/82 140/86 104/62 O2 Sat by Pulse 99 98 98 Oximetry 05/14/23 13:06 Temperature Pulse Rate 65 Respiratory 17 Rate Blood Pressure 124/81 O2 Sat by Pulse 99 Oximetry Medical Decision Making - Medical Decision Making Was pt. sent in by a medical professional or institution (JULIANA Barahona, CATERING SERVER, urgent care, hospital, or longterm...) When possible be specific @ -No Did you speak to anyone other than the patient for history (EMS, parent, family, police, friend...)? What history was obtained from this source @ -No Did you review nursing and triage notes (agree or disagree)? Why? @ -I reviewed and agree with nursing and triage notes Were old charts reviewed (outside hosp., previous admission, EMS record, old EKG, old radiological studies, urgent care reports/EKG's, longterm records)? Report findings @ -Old charts reviewed Differential Diagnosis (chest pain, altered mental status, abdominal pain women, abdominal pain men, vaginal bleeding, weakness, fever, dyspnea, syncope, headache, dizziness, GI bleed, back pain, seizure, CVA, palpatations, mental health, musculoskeletal)? @ -Differential Mental Health Depression, anxiety, bipolar, psychosis, schizophrenia, borderline personality, situational depression, adjustment disorder, behavioral disorder, brain tumor, malingering, substance abuse, encephalopathy, medication reaction, dementia, hypothyroidism, degenerative neurologic disorder, lupus.... This is not meant to be all-inclusive list EKG interpreted by me (3pts min.). @ -None done X-rays interpreted by me (1pt min.). @ -None done CT interpreted by me (1pt min.). @ -None done U/S interpreted by me (1pt. min.). @ -None done What testing was considered but not performed or refused? (CT, X-rays, U/S, labs)? Why? @ -None What meds were considered but not given or refused? Why? @ -None Did you discuss the management of the patient with other professionals (professionals i.e. , PA, CATERING SERVER, lab, RT, psych nurse, social service coordinator, control system computer scientist, teacher, infantry weapons officer, shoe caser)? Give summary @ -EPS notified of the consult. Was smoking cessation discussed for >3mins.? @ -No Was critical care preformed (if so, how long)? @ -No Were there social determinants of health that impacted care today? How? (Homelessness, low income, unemployed, alcoholism, drug addiction, transportation, low edu. Level, literacy, decrease access to med. care, skilled nursing, rehab)? @ -No Was there de-escalation of care discussed even if they declined (Discuss DNR or withdrawal of care, Hospice)? DNR status @ -No What co-morbidities impacted this encounter? (DM, HTN, Smoking, COPD, CAD, Cancer, CVA, ARF, Chemo, Hep., AIDS, mental health diagnosis, sleep apnea, morbid obesity)? @ -None Was patient admitted / discharged? Hospital course, mention meds given and route, prescriptions, significant lab abnormalities, going to OR and other pertinent info. @ -Based on the patient's presentation and physical exam, I believe patient requires psychiatric evaluation. He was placed in green scrubs. Sitter ordered. Suicidal precautions ordered. BAT is 0. UDS is pending. Vital signs within acceptable limits. At this time, patient is medically cleared for evaluation by psychiatry. Disposition pending psychiatric evaluation. EPS notified consult. Undiagnosed new problem with uncertain prognosis? @ -No Drug Therapy requiring intensive monitoring for toxicity (Heparin, Nitro, Insulin, Cardizem)? @ -No Were any procedures done? @ -No Diagnosis/symptom? @ -Encounter for psychiatric evaluation, auditory hallucinations Acute, or Chronic, or Acute on Chronic? @ -Acute Uncomplicated (without systemic symptoms) or Complicated (systemic symptoms)? @ -Uncomplicated Side effects of treatment? @ -No Exacerbation, Progression, or Severe Exacerbation? @ -No Poses a threat to life or bodily function? How? (Chest pain, USA, SD, pneumonia, PE, COPD, DKA, ARF, appy, cholecystitis, CVA, Diverticulitis, Homicidal, Suicidal, threat to staff... and all critical care pts) @ -No - Lab Data Result diagrams: 05/14/23 00:19 05/14/23 00:19 Lab Results 05/13/23 05/14/23 05/14/23 Range/Units 17:39 00:19 00:19 WBC 7.3 (4.0-11.0) k/uL RBC 5.12 (4.30-5.90) m/uL Hgb 14.8 (13.0-17.5) gm/dL Hct 45.4 (39.0-53.0) % MCV 88.7 (80.0-100.0) fL MCH 28.9 (25.0-35.0) pg MCHC 32.5 (31.0-37.0) g/dL RDW 14.1 (11.5-15.5) % Plt Count 309 (150-450) k/uL MPV 7.7 Neutrophils % 53 % Lymphocytes % 38 % Monocytes % 6 % Eosinophils % 1 % Basophils % 0 % Neutrophils # 3.9 (1.3-7.7) k/uL Lymphocytes # 2.8 (1.0-4.8) k/uL Monocytes # 0.4 (0-1.0) k/uL Eosinophils # 0.1 (0-0.7) k/uL Basophils # 0.0 (0-0.2) k/uL Sodium 140 (137-145) mmol/L Potassium 4.5 (3.5-5.1) mmol/L Chloride 102 (98-107) mmol/L Carbon Dioxide 23 (22-30) mmol/L Anion Gap 15 mmol/L BUN 13 (9-20) mg/dL Creatinine 0.90 (0.66-1.25) mg/dL Est GFR (CKD-EPI)AfAm >90 (>60 ml/min/1.73 sqM) Est GFR (CKD-EPI)NonAf >90 (>60 ml/min/1.73 sqM) Glucose 96 (74-99) mg/dL Calcium 10.3 H (8.4-10.2) mg/dL Total Bilirubin 0.4 (0.2-1.3) mg/dL AST 20 (17-59) U/L ALT 11 (4-49) U/L Alkaline Phosphatase 80 (38-126) U/L Total Protein 8.8 H (6.3-8.2) g/dL Albumin 4.9 (3.5-5.0) g/dL Urine Color Urine Appearance (Clear) Urine pH (5.0-8.0) Ur Specific [place] (1.001-1.035) Urine Protein (Negative) Urine Glucose (UA) (Negative) Urine Ketones (Negative) Urine Blood (Negative) Urine Nitrite (Negative) Urine Bilirubin (Negative) Urine Urobilinogen (<2.0) mg/dL Ur Leukocyte Esterase (Negative) Urine Opiates Screen Not Detected (NotDetected) Ur Oxycodone Screen Not Detected (NotDetected) Urine Methadone Screen Not Detected (NotDetected) Ur Propoxyphene Screen Not Detected (NotDetected) Ur Barbiturates Screen Not Detected (NotDetected) U Tricyclic Antidepress Not Detected (NotDetected) Ur Phencyclidine Scrn Not Detected (NotDetected) Ur Amphetamines Screen Not Detected (NotDetected) U Methamphetamines Scrn Not Detected (NotDetected) U Benzodiazepines Scrn Not Detected (NotDetected) Urine Cocaine Screen Not Detected (NotDetected) U Marijuana (THC) Screen Detected H (NotDetected) Coronavirus (PCR) (Not Detectd) 05/14/23 05/14/23 Range/Units 00:19 05:22 WBC (4.0-11.0) k/uL RBC (4.30-5.90) m/uL Hgb (13.0-17.5) gm/dL Hct (39.0-53.0) % MCV (80.0-100.0) fL MCH (25.0-35.0) pg MCHC (31.0-37.0) g/dL RDW (11.5-15.5) % Plt Count (150-450) k/uL MPV Neutrophils % % Lymphocytes % % Monocytes % % Eosinophils % % Basophils % % Neutrophils # (1.3-7.7) k/uL Lymphocytes # (1.0-4.8) k/uL Monocytes # (0-1.0) k/uL Eosinophils # (0-0.7) k/uL Basophils # (0-0.2) k/uL Sodium (137-145) mmol/L Potassium (3.5-5.1) mmol/L Chloride (98-107) mmol/L Carbon Dioxide (22-30) mmol/L Anion Gap mmol/L BUN (9-20) mg/dL Creatinine (0.66-1.25) mg/dL Est GFR (CKD-EPI)AfAm (>60 ml/min/1.73 sqM) Est GFR (CKD-EPI)NonAf (>60 ml/min/1.73 sqM) Glucose (74-99) mg/dL Calcium (8.4-10.2) mg/dL Total Bilirubin (0.2-1.3) mg/dL AST (17-59) U/L ALT (4-49) U/L Alkaline Phosphatase (38-126) U/L Total Protein (6.3-8.2) g/dL Albumin (3.5-5.0) g/dL Urine Color Yellow Urine Appearance Clear (Clear) Urine pH 5.5 (5.0-8.0) Ur Specific [place] 1.031 (1.001-1.035) Urine Protein Trace H (Negative) Urine Glucose (UA) Negative (Negative) Urine Ketones Negative (Negative) Urine Blood Negative (Negative) Urine Nitrite Negative (Negative) Urine Bilirubin Negative (Negative) Urine Urobilinogen <2.0 (<2.0) mg/dL Ur Leukocyte Esterase Negative (Negative) Urine Opiates Screen (NotDetected) Ur Oxycodone Screen (NotDetected) Urine Methadone Screen (NotDetected) Ur Propoxyphene Screen (NotDetected) Ur Barbiturates Screen (NotDetected) U Tricyclic Antidepress (NotDetected) Ur Phencyclidine Scrn (NotDetected) Ur Amphetamines Screen (NotDetected) U Methamphetamines Scrn (NotDetected) U Benzodiazepines Scrn (NotDetected) Urine Cocaine Screen (NotDetected) U Marijuana (THC) Screen (NotDetected) Coronavirus (PCR) Not Detected (Not Detectd) Disposition Clinical Impression: Encounter for psychological evaluation, Acute psychosis Disposition: ADMITTED IP TO THIS [facility] Condition: Stable
[2023-05-13 18:50] LABS: Amphetamine Screen,Urine Not Detected (NotDetected); Barbiturate Screen,Urine Not Detected (NotDetected); Benzodiazepines Screen,Urine Not Detected (NotDetected); Cocaine Screen,Urine Not Detected (NotDetected); Methadone Screen, Urine Not Detected (NotDetected); Opiate Screen,Urine Not Detected (NotDetected); Oxycodone Screen, Urine Not Detected (NotDetected); Phencyclidine Screen,Urine Not Detected (NotDetected); Tricyclic Antidepressant,Urine Not Detected (NotDetected); Urn Cannabinoid Scrn Detected (NotDetected)
[2023-05-14 01:09] LABS: Basophils % (A) 0 %; Eosinophils # (A) 0.1 k/uL (0-0.7); Eosinophils % (A) 1 %; HCT 45.4 % (39.0-53.0); HGB 14.8 gm/dL (13.0-17.5); Lymphocytes # (A) 2.8 k/uL (1.0-4.8); Lymphocytes % (A) 38 %; MCH 28.9 pg (25.0-35.0); MCHC 32.5 g/dL (31.0-37.0); MCV 88.7 fL (80.0-100.0); Mean Platelet Volume 7.7; Monocytes # (A) 0.4 k/uL (0-1.0); Monocytes % (A) 6 %; Neutrophils # (A) 3.9 k/uL (1.3-7.7); Neutrophils % (A) 53 %; Platelet Count 309 k/uL (150-450); RBC 5.12 m/uL (4.30-5.90); RDW 14.1 % (11.5-15.5); WBC 7.3 k/uL (4.0-11.0)
[2023-05-14 01:18] LABS: ALT 11 U/L (4-49); AST 20 U/L (17-59); African American GFR (CKD) >90 (>60 ml/min/1.73 sqM); Albumin 4.9 g/dL (3.5-5.0); Alkaline Phosphatase 80 U/L (38-126); Anion Gap 15 mmol/L; Blood Urea Nitrogen 13 mg/dL (9-20); Calcium 10.3 mg/dL (8.4-10.2); Carbon Dioxide 23 mmol/L (22-30); Chloride 102 mmol/L (98-107); Glucose 96 mg/dL (74-99); Non-African American GFR(CKD) >90 (>60 ml/min/1.73 sqM); Potassium 4.5 mmol/L (3.5-5.1); Sodium 140 mmol/L (137-145); Total Bilirubin 0.4 mg/dL (0.2-1.3); Total Protein 8.8 g/dL (6.3-8.2)
[2023-05-14] MEDS ORDERED: MELATONIN 5 MG TABLET PO STA (04:57)
[2023-05-14 10:57] LABS: Appearance,Urine Clear (Clear); Bilirubin,Urine Negative (Negative); Blood,Urine Negative (Negative); Color,Urine Yellow; Glucose,Urine (UA) Negative (Negative); Ketones,Urine Negative (Negative); Leukocyte Esterase,Urine Negative (Negative); Nitrite,Urine Negative (Negative); PH, Urine 5.5 (5.0-8.0); Protein,Urine Trace (Negative); Specific Gravity,Urine 1.031 (1.001-1.035); Urobilinogen,Urine <2.0 mg/dL (<2.0)
[2023-05-14] MEDS ORDERED: ACETAMINOPHEN TAB 325 MG TAB PO PRN (12:31)
[2023-05-14] MEDS ORDERED: MAG HYDROX/AL HYDROX/SIMETH 30 ML CUP PO PRN (12:31)
[2023-05-14] MEDS ORDERED: MAGNESIUM HYDROXIDE 2,400 MG/30 ML CUP PO PRN (12:31)
[2023-05-14] MEDS ORDERED: OLANZapine 10 MG VIAL IM PRN (12:33)
[2023-05-14] MEDS ORDERED: OLANZapine 10 MG TAB PO PRN (12:33)
[2023-05-14] MEDS: traZODone HCL 50 MG TAB PO SCH (20:20)
[2023-05-14] MEDS: SERTRALINE 100 MG TAB PO SCH (20:20)
[2023-05-14] MEDS ORDERED: ZIPRASIDONE 40 MG CAP PO SCH (21:00)
--- NOTE | 2023-05-14 22:03 | P.MDCNMH ---
History of Present Illness H&P Date: 05/14/23 Chief Complaint: Hallucinations Patient is a 18-year-old male with a past medical history of depression was brought to the hospital by his family for psychiatric evaluation. Patient states that he has been hearing voices, seeing things also yesterday seen a women telling him to hurt himself as well as his family members. Patient states that voices taking control of his activities. Patient did try to cut on his left wrist with scissors. Otherwise patient states that he has been taking his medications regularly. Currently denies any suicidal or homicidal ideation. Patient otherwise denies any complaints of recent illnesses. Denies any smoking or drinking. Denies any substance use. No fever no chills. No cough or sputum production. No headache or dizziness or lightheadedness. No chest pain or shortness of breath. Laboratory data showed WBC 7.3 hemoglobin 14.8 and platelets 309 Sodium 140 potassium 4.5 chloride 102 bicarb is 23 BUN 13 and creatinine 0.9 and calcium 10.3. Total protein 8.8. Urinalysis is negative for infection UDS is positive for marijuana Coronavirus PCR not detected. Review of Systems Constitutional: Patient denies any fever or chills . no Generalized weakness. Abdomen: Patient denied any nausea or vomiting or abd. pain Cardiovascular: Patient denies any chest pain or short of breath no palpitations. Respiratory: patient denied any cough . no sputum production. No shortness of breath Neurologic: Patient denied any numbness or tingling headache. Musculoskeletal: Patient denies any complaints of joint swelling or deformity. Skin: Negative Psychiatric: Negative Endocrine: No heat or cold intolerance. No recent weight gain. Genitourinary: No dysuria or hematuria. All other 14 point ROS negative except the above Past Medical History Past Medical History: No Reported History Additional Past Medical History / Comment(s): suicidal ideation History of Any Multi-Drug Resistant Organisms: None Reported Past Surgical History: No Surgical Hx Reported Past Psychological History: Depression Smoking Status: Never smoker Past Alcohol Use History: None Reported Past Drug Use History: None Reported Medications and Allergies Home Medications Medication Instructions Recorded Confirmed Type Sertraline [Zoloft] 100 mg PO HS 30 Days #30 tab 04/11/23 05/14/23 Rx Ziprasidone [Geodon] 40 mg PO HS 30 Days #30 cap 04/11/23 05/14/23 Rx traZODone HCL [Desyrel] 50 mg PO HS 30 Days #30 tab 04/11/23 05/14/23 Rx Allergies Allergy/AdvReac Type Severity Reaction Status Date / Time No Known Allergies Allergy Verified 05/14/23 15:43 Physical Exam Vitals: Vital Signs Temp Pulse Resp BP Pulse Ox 05/14/23 13:06 65 17 124/81 99 05/14/23 09:00 75 17 104/62 98 05/13/23 17:42 86 16 140/86 98 05/13/23 16:16 98.4 F 88 20 127/82 99 Intake and Output 05/13/23 05/14/23 05/14/23 22:59 06:59 14:59 Other: Weight 111.13 kg PHYSICAL EXAMINATION: Patient is lying in the bed comfortably, no acute distress, awake alert and oriented.. HEENT: Normocephalic. Neck is supple. Pupils reactive. Nostrils clear. Oral cavity is moist. Neck reveals no JVD, carotid bruits, or thyromegaly. CHEST EXAMINATION: Trachea is central. Symmetrical expansion. Lung whitaker clear to auscultation and percussion. CARDIAC: Normal S1, S2 with no gallops. No murmurs ABDOMEN: Soft. Bowel sounds present. Nontender. No organomegaly. No abdominal bruits. Extremities: reveal no edema. No clubbing or cyanosis Neurologically awake, alert, oriented x3 with well-coordinated movements. No focal deficits noted Skin: No rash or skin lesions. Psychiatric: Coperative. Nonsuicidal, Musculoskeletal: No joint swelling or deformity. Normal range of motion. Cranial Nerve Examination - Cranial Nerves Cranial Nerve I- Olfactory: Intact Cranial Nerve II- Optic: Intact Cranial Nerve III- Oculomotor: Intact Cranial Nerve IV- Trochlear: Intact Cranial Nerve V- Trigeminal: Intact Cranial Nerve - Abducens: Intact Cranial Nerve VII- Facial: Intact Cranial Nerve VIII- Auditory: Intact Cranial Nerve IX- Glossopharyngeal: Intact Cranial Nerve X- Vagus: Intact Cranial Nerve XI- Accessory: Intact Cranial Nerve XII- Hypoglossal: Intact Results CBC & Chem 7: 05/14/23 00:19 05/14/23 00:19 Labs: Abnormal Lab Results - Last 24 Hours (Table) 05/13/23 05/14/23 05/14/23 Range/Units 17:39 00:19 05:22 Calcium 10.3 H (8.4-10.2) mg/dL Total Protein 8.8 H (6.3-8.2) g/dL Urine Protein Trace H (Negative) U Marijuana (THC) Screen Detected H (NotDetected) Assessment and Plan Assessment: Visual and auditory hallucinations directing to harm himself and family members. Schizophrenia History of depression GERD Marijuana use disorder Obesity with BMI 38.0 DVT prophylaxis with early ambulation Plan: Patient will be continued on current psychiatric medications and plan. Follow- up repeat BMP level. Patient was counseled for cessation of marijuana. We will follow-up closely and further recommendations based on the clinical course. Thank you for the consult. Time with Patient: Greater than 30
[2023-05-15] MEDS: NICOTINE 14MG/24HR PATCH TRANSDERM SCH (08:12)
--- NOTE | 2023-05-15 11:12 | P.HP ---
Psychiatric H&P - . H&P Date: 05/15/23 History & Physical: Allergies Allergy/AdvReac Type Severity Reaction Status Date / Time No Known Allergies Allergy Verified 05/14/23 15:43 Vital Signs Temp 97.4 F L 05/15/23 06:54 Pulse 116 H 05/15/23 06:54 Resp 14 05/15/23 06:54 BP 156/67 05/15/23 06:54 Pulse Ox 98 05/14/23 15:19 FiO2 Intake & Output 05/14/23 05/15/23 05/15/23 18:59 06:59 18:59 Weight 106.679 kg Laboratory Last Values WBC 7.3 k/uL (4.0-11.0) 05/14/23 00:19 RBC 5.12 m/uL (4.30-5.90) 05/14/23 00:19 Hgb 14.8 gm/dL (13.0-17.5) 05/14/23 00:19 Hct 45.4 % (39.0-53.0) 05/14/23 00:19 MCV 88.7 fL (80.0-100.0) 05/14/23 00:19 MCH 28.9 pg (25.0-35.0) 05/14/23 00:19 MCHC 32.5 g/dL (31.0-37.0) 05/14/23 00:19 RDW 14.1 % (11.5-15.5) 05/14/23 00:19 Plt Count 309 k/uL (150-450) 05/14/23 00:19 MPV 7.7 05/14/23 00:19 Neutrophils % 53 % 05/14/23 00:19 Lymphocytes % 38 % 05/14/23 00:19 Monocytes % 6 % 05/14/23 00:19 Eosinophils % 1 % 05/14/23 00:19 Basophils % 0 % 05/14/23 00:19 Neutrophils # 3.9 k/uL (1.3-7.7) 05/14/23 00:19 Lymphocytes # 2.8 k/uL (1.0-4.8) 05/14/23 00:19 Monocytes # 0.4 k/uL (0-1.0) 05/14/23 00:19 Eosinophils # 0.1 k/uL (0-0.7) 05/14/23 00:19 Basophils # 0.0 k/uL (0-0.2) 05/14/23 00:19 Sodium 140 mmol/L (137-145) 05/14/23 00:19 Potassium 4.5 mmol/L (3.5-5.1) 05/14/23 00:19 Chloride 102 mmol/L (98-107) 05/14/23 00:19 Carbon Dioxide 23 mmol/L (22-30) 05/14/23 00:19 Anion Gap 15 mmol/L 05/14/23 00:19 BUN 13 mg/dL (9-20) 05/14/23 00:19 Creatinine 0.90 mg/dL (0.66-1.25) 05/14/23 00:19 Est GFR (CKD-EPI)AfAm >90 (>60 ml/min/1.73 sqM) 05/14/23 00:19 Est GFR (CKD-EPI)NonAf >90 (>60 ml/min/1.73 sqM) 05/14/23 00:19 Glucose 96 mg/dL (74-99) 05/14/23 00:19 Calcium 10.3 mg/dL (8.4-10.2) H 05/14/23 00:19 Total Bilirubin 0.4 mg/dL (0.2-1.3) 05/14/23 00:19 AST 20 U/L (17-59) 05/14/23 00:19 ALT 11 U/L (4-49) 05/14/23 00:19 Alkaline Phosphatase 80 U/L (38-126) 05/14/23 00:19 Total Protein 8.8 g/dL (6.3-8.2) H 05/14/23 00:19 Albumin 4.9 g/dL (3.5-5.0) 05/14/23 00:19 Urine Color Yellow 05/14/23 05:22 Urine Appearance Clear (Clear) 05/14/23 05:22 Urine pH 5.5 (5.0-8.0) 05/14/23 05:22 Ur Specific Marceline 1.031 (1.001-1.035) 05/14/23 05:22 Urine Protein Trace (Negative) H 05/14/23 05:22 Urine Glucose (UA) Negative (Negative) 05/14/23 05:22 Urine Ketones Negative (Negative) 05/14/23 05:22 Urine Blood Negative (Negative) 05/14/23 05:22 Urine Nitrite Negative (Negative) 05/14/23 05:22 Urine Bilirubin Negative (Negative) 05/14/23 05:22 Urine Urobilinogen <2.0 mg/dL (<2.0) 05/14/23 05:22 Ur Leukocyte Esterase Negative (Negative) 05/14/23 05:22 Urine Opiates Screen Not Detected (NotDetected) 05/13/23 17:39 Ur Oxycodone Screen Not Detected (NotDetected) 05/13/23 17:39 Urine Methadone Screen Not Detected (NotDetected) 05/13/23 17:39 Ur Propoxyphene Screen Not Detected (NotDetected) 05/13/23 17:39 Ur Barbiturates Screen Not Detected (NotDetected) 05/13/23 17:39 U Tricyclic Antidepress Not Detected (NotDetected) 05/13/23 17:39 Ur Phencyclidine Scrn Not Detected (NotDetected) 05/13/23 17:39 Ur Amphetamines Screen Not Detected (NotDetected) 05/13/23 17:39 U Methamphetamines Scrn Not Detected (NotDetected) 05/13/23 17:39 U Benzodiazepines Scrn Not Detected (NotDetected) 05/13/23 17:39 Urine Cocaine Screen Not Detected (NotDetected) 05/13/23 17:39 U Marijuana (THC) Screen Detected (NotDetected) H 05/13/23 17:39 Coronavirus (PCR) Not Detected (Not Detectd) 05/14/23 00:19 05/15/23 10:59 IDENTIFYING DATA: Patient is a 18-year-old -[place] male, currently lives with his grandmother in a house, he works in a factory. HPI: Patient presented to the hospital for psychiatric evaluation. Currently patient was complaining of auditory hallucinations, claiming that the voice was telling him to hurt himself and also possibly family members. Patient apparently cut himself and lost for left wrist. Patient was seen today and agreeable to street to writer technical publications in the office. Patient was smiling during the interview and fairly directable. He states that he cut himself with clippers. He claims that he came into the hospital with "schizophrenia". He states that he was at work and he started seeing a vision of a lady. He states that the lady was telling him to harm himself. He claims that he did so at work and was taken to his boss in and taken the hospital. He states that the auditory hallucinations of an on and off for the past few days. He claims that his depression and anxiety have been stable and fair. He is endorsing mild paranoia at this time. Claims that his sleep and appetite are fair. claims that he is taking his 3 medications that he was prescribed last discharge. He states that he does have trouble sometimes with impulse control. Patient denies any suicidal or homicidal ideations intent or plan. At this time patient denies any current auditory or visual hallucinations. Patient denies any flight of ideas racing thoughts and increased in goal directed behavior. Patient admits to using no recreational drugs or substances except for THC which was positive on [facility] PAST PSYCHIATRIC HISTORY: Patient states that he has a history of psychosis, depression and anxiety. Patient was previously on Abilify and Zoloft, geodon and trazodone. He was last psychiatrically hospitalized at on the mental health unit at this hospital discharged on 04/08. [Patient claims that he follows up [facility] counseling.] [Patient denies any history of suicide attempts in the past.] PMH:as per ED note ALLERGIES: as per EMR CHEMICAL DEPENDENCY HISTORY: as per HPI FAMILY PSYCHIATRIC/SUBSTANCE USE HISTORY: Claims that there is depression that runs in his family. SOCIAL HISTORY: Patient was born and raised in [place] and states that he currently lives with his grandmother in a house, he works in a factory. He is single and unmarried. He denies any legal history. MENTAL STATUS EXAM: General Appearance: Patient appears to be mildly overweight, stated age is alert, [directable, and attempts to cooperate]. Smiles quite frequently, Patient appears to have fair hygiene and grooming. Behavior: Patient is seated without any agitated behavior. Bright and pleasant. Speech: Patient's speech is [fluent and nonpressured.] [place]. Mood/Affect: Patient reports their mood is ["fine"], affect is congruent Suicidality/Homicidality: Patient denies having any homicidal ideation intent or plan. [Denies any suicidal ideations intent or plan] Perceptions: Patient denies any visual hallucinations [and denies any auditory hallucinations] Though content/process: [There is no evidence of any delusional thought content and thought process is linear and goal-directed.] [place], vague. Memory and concentration: AOX3, grossly intact for the purposes of this session. Can spell "WORLD" backwards Judgment and insight: [poor]/impulsive STRENGTHS/WEAKNESSES: strength is that patient is [resilient]. Weakness is that patient [has poor judgment and is impulsive] INTELLECT: [average] IMPRESSIONS: Psychosis unspecified, likely schizophrenia vs schizoaffective disorder PLAN: -Patient is admitted under [voluntary] status to MHU for stabilization of psychiatric symptoms and safety. Patient has signed [adult voluntary form and] [medication consent] and is placed in patient's chart. -Medications : continue zoloft 100 mg daily for mood/anxiety, trazodone 50 mg qhs for insomnia. d/c geodon and replace with Invega PO 3 mg qhs for mood stabilization/psychosis. spoke with patient about transitioning onto MADRID which he was agreeable to. -Ativan [and Haldol] PRN for agitation/aggression [-Patient was counselled on substance abuse and desired to cut back on use] -Patient was informed of the risks, benefits and side effects of the medication and patient verbally consented to taking the medications. Patient signed med consent form and was placed in chart. -Internal Medicine consult to perform medical evaluation and physical. -NRT - not needed as patient does not smoke -SW on board for discharge planning. Encourage patient to participate in groups to work on coping skills.
[2023-05-15] MEDS: traZODone HCL 50 MG TAB PO SCH (20:30)
[2023-05-15] MEDS: SERTRALINE 100 MG TAB PO SCH (20:30)
[2023-05-15] MEDS ORDERED: PALIPERIDONE 3 MG TAB.ER.24 PO SCH (21:00)
[2023-05-16] MEDS: NICOTINE 14MG/24HR PATCH TRANSDERM SCH (08:33)
--- NOTE | 2023-05-16 10:24 | P.PN ---
Progress Note - Text Progress Note Date: 05/16/23 Interval history: Patient was seen today and was agreeable to speak to consumer loan underwriter in the office. Nicholas pineda was in group earlier, states that he is really liking the groups at this time and is taking a lot away from them. He states that he feels very supported here on the unit. He continues to smile significantly during conversation and appears to be more positive today. He states that "the medications have been working" and states that he fell asleep shortly after taking the medication last night. He claims that the voices have been decreasing however still mildly present. He claims that his appetite is fair at this time. We continue to speak about the long-acting injection which is okay with and also has follow-up option of going to [facility]. He is denying any suicidal or homicidal ideations intent or plan. Denying any visual hallucinations. Not endorsing any paranoia. Mental status examination: General Appearance: Patient appears to be mildly overweight, stated age is alert, [directable, and attempts to cooperate]. Smiles quite frequently, Patient appears to have fair hygiene and grooming. Behavior: Patient is seated without any agitated behavior. Bright and pleasant. Speech: Patient's speech is [fluent and nonpressured.] [place]. Mood/Affect: Patient reports their mood is ["good"], affect is congruent Suicidality/Homicidality: Patient denies having any homicidal ideation intent or plan. [Denies any suicidal ideations intent or plan] Perceptions: Patient denies any visual hallucinations [and denies any auditory hallucinations] Though content/process: [There is no evidence of any delusional thought content and thought process is linear and goal-directed.] [place] Memory and concentration: AOX3, grossly intact for the purposes of this session Judgment and insight: [poor]/limited, improving mildly IMPRESSIONS: Psychosis unspecified, likely schizophrenia vs schizoaffective disorder PLAN: -Patient is admitted under [voluntary] status to MHU for stabilization of psychiatric symptoms and safety. Patient has signed [adult voluntary form and] [medication consent] and is placed in patient's chart. -Medications : continue zoloft 100 mg daily for mood/anxiety, trazodone 50 mg qhs for insomnia. Invega PO 3 mg qhs for tonight then increase to 6 mg qhs on friday for mood stabilization/psychosis. spoke with patient about transitioning onto MADRID which he was agreeable to, will likely do this on friday- friday. -Ativan [and Haldol] PRN for agitation/aggression -NRT - not needed as patient does not smoke -SW on board for discharge planning. Encourage patient to participate in groups to work on coping skills. likely discharge early next week once patient is transitioned onto MADRID.
[2023-05-16] MEDS: SERTRALINE 100 MG TAB PO SCH (20:48)
[2023-05-16] MEDS: traZODone HCL 50 MG TAB PO SCH (20:49)
[2023-05-16] MEDS ORDERED: PALIPERIDONE 3 MG TAB.ER.24 PO ONE (21:00)
[2023-05-17] MEDS: SERTRALINE 100 MG TAB PO SCH (20:09)
[2023-05-17] MEDS: PALIPERIDONE 6 MG TAB.ER.24 PO SCH (20:09)
[2023-05-17] MEDS: traZODone HCL 50 MG TAB PO SCH (20:09)
--- NOTE | 2023-05-18 11:17 | P.PN ---
Progress Note - Text Interval history: Patient was seen [wandering the hallways] and was directable and agreeable to speak with senior technical writer. States that mood is a 10 out of 10. At this time patient denies any suicidal or homicidal ideations intent or plan. Denies any Auditory or visual hallucinations. Patient denies any side effects from the medications and has been compliant with meds. Mental status exam: General Appearance: [Patient appears to be stated age is alert, directable, and cooperative.] Behavior: [No agitated behavior. Patient is calm and directable] Speech: Patient's speech is fluent and nonpressured. Mood/Affect: Mood is improving mildly, affect is congruent and constricted. Suicidality/Homicidality: Patient denies having any suicidal or homicidal ideation intent or plan. Perceptions: Patient denies any auditory or visual hallucinations. Though content/process: [There is no evidence of any delusional thought content and thought process is linear and goal-directed.] Memory and concentration: AOX3, grossly intact for the purposes of this session Judgment and insight: improving mildly Assessment/Plan: Continue with current diagnosis. Patient continues to meet criteria for inpatient psychiatric admission for symptom stabilization and safety.[Patient will be maintained on current psychotropic medication regimen.] Monitor for medication compliance and for any psychotropic medication side effects. Will continue to monitor ongoing response to treatment. Encouraged participation in milieu.
--- NOTE | 2023-05-18 11:18 | P.PN ---
Progress Note - Text Interval history: Patient was seen [wandering the hallways] and was directable and agreeable to speak with business writer. States that mood is "amazing". At this time patient denies any suicidal or homicidal ideations intent or plan. Denies any Auditory or visual hallucinations. Patient denies any side effects from the medications and has been compliant with meds. Mental status exam: General Appearance: [Patient appears to be older than stated age is alert, directable, and cooperative.] Malodorous Behavior: [No agitated behavior. Patient is calm and directable] Speech: Patient's speech is fluent and nonpressured. Mood/Affect: Mood is improving mildly, affect is congruent and constricted. Suicidality/Homicidality: Patient denies having any suicidal or homicidal ideation intent or plan. Perceptions: Patient denies any auditory or visual hallucinations. Though content/process: [There is no evidence of any delusional thought content and thought process is linear and goal-directed.] Memory and concentration: AOX3, grossly intact for the purposes of this session Judgment and insight: improving mildly Assessment/Plan: Continue with current diagnosis. Patient continues to meet criteria for inpatient psychiatric admission for symptom stabilization and safety.[Patient will be maintained on current psychotropic medication regimen.] Monitor for medication compliance and for any psychotropic medication side effects. Will continue to monitor ongoing response to treatment. Encouraged participation in milieu.
[2023-05-18] MEDS: traZODone HCL 50 MG TAB PO SCH (21:15)
[2023-05-18] MEDS: PALIPERIDONE 6 MG TAB.ER.24 PO SCH (21:15)
[2023-05-18] MEDS: SERTRALINE 100 MG TAB PO SCH (21:15)
--- NOTE | 2023-05-19 12:59 | P.PN ---
Progress Note - Text Progress Note Date: 05/19/23 Interval history: Patient was seen today and was agreeable to speak to entry writer in the office. Nicholas pineda was seen wandering the hallways and also precipitating a group. He states that he believes the paliperidone at nighttime was causing her to feel little bit too tired. He states that he is not feeling tired during the day however was sleeping "too quickly". He states that the voices have calmed down and he is feeling much better today. He continues to want to be transitioned onto the long-acting injection to help ensure compliance. We spoke about the positives and negatives of this and will go ahead and do this today. Patient was encouraged to talk with his grandmother about possible discharge tomorrow. He states that he is not having any depression or anxiety at this time. Claims that his appetite is fair. He is denying any suicidal or homicidal ideations intent or plan. Denying any visual hallucinations. Not endorsing any paranoia. Mental status examination: General Appearance: Patient appears to be mildly overweight, stated age is alert, directable, and attempts to cooperate. Smiles quite frequently, Patient appears to have fair hygiene and grooming. Behavior: Patient is seated without any agitated behavior. Bright and pleasant. Speech: Patient's speech is fluent and nonpressured. [place]. Mood/Affect: Patient reports their mood is "better", affect is congruent Suicidality/Homicidality: Patient denies having any homicidal ideation intent or plan. Denies any suicidal ideations intent or plan Perceptions: Patient denies any visual hallucinations and denies any auditory hallucinations Though content/process: There is no evidence of any delusional thought content and thought process is linear and goal-directed. Memory and concentration: AOX3, grossly intact for the purposes of this session Judgment and insight: chronically limited, improving mildly IMPRESSIONS: Psychosis unspecified, likely schizophrenia vs schizoaffective disorder PLAN: -Patient is admitted under voluntary status to MHU for stabilization of psychiatric symptoms and safety. Patient has signed adult voluntary form and medication consent and is placed in patient's chart. -Medications : zoloft 100 mg daily for mood/anxiety, trazodone 50 mg qhs for insomnia. d/c po Invega as patient is being transitioned onto Perseris SQ 90 mg IM today. -Ativan and Haldol PRN for agitation/aggression -NRT - not needed as patient does not smoke -SW on board for discharge planning. Encourage patient to participate in groups to work on coping skills. likely discharge tomorrow once patient is safely transitioned onto Perseris MADRID. Sw to coordinate and prepre d/c plan with grandmother for tomorrow.
[2023-05-19] MEDS ORDERED: risperiDONE 90 MG SYR KIT (NO COST) PHARMACY STOCK SQ ONE (13:30)
[2023-05-19] MEDS: traZODone HCL 50 MG TAB PO SCH (21:24)
[2023-05-19] MEDS: SERTRALINE 100 MG TAB PO SCH (21:24)
[2023-05-20 06:41] VITALS: BP 143/86; PULSE 66; RESP 15; TEMP 97.7
--- NOTE | 2023-05-20 10:19 | P.DS ---
Providers Date of admission: 05/14/23 11:32 Expected date of discharge: 05/20/23 Attending physician: Jese Cosme MD Consults: 05/14/23 12:31 Consult Physician Routine Consulting Provider: [facility] Consult Reason/Comments: H&P Do you want consulting provider notified?: Yes Primary care physician: Varinder Davis - Discharge Diagnosis(es) (1) Unspecified psychosis Current Visit: Yes Status: Acute Priority: High Hospital Course: Admission HPI: Admission note was completed by magazine writer "Patient is a 18-year-old - [place] male, currently lives with his grandmother in a house, he works in a factory. Patient presented to the hospital for psychiatric evaluation. Currently patient was complaining of auditory hallucinations, claiming that the voice was telling him to hurt himself and also possibly family members. Patient apparently cut himself and lost for left wrist. Patient was seen today and agreeable to street to magazine writer in the office. Patient was smiling during the interview and fairly directable. He states that he cut himself with clippers. He claims that he came into the hospital with "schizophrenia". He states that he was at work and he started seeing a vision of a lady. He states that the lady was telling him to harm himself. He claims that he did so at work and was taken to his boss in and taken the hospital. He states that the auditory hallucinations of an on and off for the past few days. He claims that his depression and anxiety have been stable and fair. He is endorsing mild paranoia at this time. Claims that his sleep and appetite are fair. claims that he is taking his 3 medications that he was prescribed last discharge. He states that he does have trouble sometimes with impulse control. Patient denies any suicidal or homicidal ideations intent or plan. At this time patient denies any current auditory or visual hallucinations. Patient denies any flight of ideas racing thoughts and increased in goal directed behavior. Patient admits to using no recreational drugs or substances except for THC which was positive on UDS" Hospital course: Upon admission to the unit patient was directable and agreeable to commence treatment and signed adult voluntary form. Patient got along well with other patients on the unit and followed unit protocol. Patient was compliant with the medications and denied any side effects throughout hospital course. Patient was started on Invega PO 6 mg qhs and tolerated it well, and patient was agreeable to be switched onto MADRID Perseris SQ 90 mg qmonthly and was given first dose on 05/19. Patient was also restarted back on his home dose of Zoloft 100 mg daily for mood/anxiety, trazodone 50 mg daily at bedtime for insomnia. Patient spoke of his stressors and engaged in therapy both group and individual. Patient was also seen by medical team for history and physical exam. Throughout the course of the hospitalization patient gradually improved with regards to mood, anxiety, psychosis/hallucinations, suicidal thoughts, sleep and returned back to their b aseline level of functioning. On the day of discharge patient denied any suicidal or homicidal ideations intent or plan denied any auditory or visual hallucinations. Patient endorsed wanting to live for his health and family. The patient denied any access to guns or weapons. Patient denied any paranoia and did not endorse any delusions. Patient does not have a significant history of substance abuse and was counseled on abstaining from all substances including alcohol and marijuana. Patient was also counseled on the medications and need for regular compliance and was encouraged to follow-up with their outpatient appointment for mental health and also for primary care. Prior to discharge a family meeting will be arranged by perinatal social worker to answer any questions and ensure safety upon discharge. Patient will be following up at [facility] for elevated level of care and closer monitoring due to patient's condition. Mental status exam: General Appearance: Patient appears to be mildly overweight, stated age is alert, pleasant, and cooperative. Patient is in no acute distress and has improved hygiene and grooming Behavior: Patient is calmly seated without any agitated behavior. Speech: Patient's speech is fluent and nonpressured. Mood/Affect: Patient reports their mood is "better", affect is congruent and euthymic. Suicidality/Homicidality: Patient denies having any suicidal or homicidal ideation intent or plan. Perceptions: Patient denies any auditory or visual hallucinations. Though content/process: There is no evidence of any delusional thought content and thought process is linear and goal-directed. more future oriented Memory and concentration: AOX3, grossly intact for the purposes of this session. Can spell "WORLD" backwards correctly. Judgment and insight: chronically poor/limited, however has improved with guarded prognosis Impression: Psychosis unspecified Plan: -Continue with discharge today as patient has improved and stabilized psychiatrically and is not currently an imminent threat to himself and/or others. Patient will remain at chronically elevated risk for harm to self and/or others due to his impulsivity. -Continue medications: Zoloft 100 mg daily for mood/anxiety, trazodone 50 mg daily at bedtime for insomnia/mood. po invega was discontinued as patient was transitioned onto MADRID Perseris 90 mg SQ, last dose was given on 05/19 and next dose will be due on 06/17 -Patient was counseled on the need for medication compliance and appropriate follow-up at mental health and also primary care for medical issues. Patient verbalized understanding and agreed. -Social work to arrange for and conduct family meeting to ensure safety upon discharge and answer any questions/concerns. Social work also to arrange for patients follow up appointments with [facility] for psychiatric care along with follow up with primary care provider. -Patient counseled on abstaining from recreational drugs and marijuana and alcohol. Was informed/educated on the adverse effects on their physical and mental health. Patient verbally agreed and understood. -Patient was instructed to return to the hospital or seek immediate medical care if their psychiatric or medical symptoms do worsen or reoccur. Allergies Allergy/AdvReac Type Severity Reaction Status Date / Time No Known Allergies Allergy Verified 05/14/23 15:43 Laboratory Results WBC 7.3 k/uL (4.0-11.0) 05/14/23 00:19 RBC 5.12 m/uL (4.30-5.90) 05/14/23 00:19 Hgb 14.8 gm/dL (13.0-17.5) 05/14/23 00:19 Hct 45.4 % (39.0-53.0) 05/14/23 00:19 MCV 88.7 fL (80.0-100.0) 05/14/23 00:19 MCH 28.9 pg (25.0-35.0) 05/14/23 00:19 MCHC 32.5 g/dL (31.0-37.0) 05/14/23 00:19 RDW 14.1 % (11.5-15.5) 05/14/23 00:19 Plt Count 309 k/uL (150-450) 05/14/23 00:19 MPV 7.7 05/14/23 00:19 Neutrophils % 53 % 05/14/23 00:19 Lymphocytes % 38 % 05/14/23 00:19 Monocytes % 6 % 05/14/23 00:19 Eosinophils % 1 % 05/14/23 00:19 Basophils % 0 % 05/14/23 00:19 Neutrophils # 3.9 k/uL (1.3-7.7) 05/14/23 00:19 Lymphocytes # 2.8 k/uL (1.0-4.8) 05/14/23 00:19 Monocytes # 0.4 k/uL (0-1.0) 05/14/23 00:19 Eosinophils # 0.1 k/uL (0-0.7) 05/14/23 00:19 Basophils # 0.0 k/uL (0-0.2) 05/14/23 00:19 Sodium 140 mmol/L (137-145) 05/14/23 00:19 Potassium 4.5 mmol/L (3.5-5.1) 05/14/23 00:19 Chloride 102 mmol/L (98-107) 05/14/23 00:19 Carbon Dioxide 23 mmol/L (22-30) 05/14/23 00:19 Anion Gap 15 mmol/L 05/14/23 00:19 BUN 13 mg/dL (9-20) 05/14/23 00:19 Creatinine 0.90 mg/dL (0.66-1.25) 05/14/23 00:19 Est GFR (CKD-EPI)AfAm >90 (>60 ml/min/1.73 sqM) 05/14/23 00:19 Est GFR (CKD-EPI)NonAf >90 (>60 ml/min/1.73 sqM) 05/14/23 00:19 Glucose 96 mg/dL (74-99) 05/14/23 00:19 Calcium 10.3 mg/dL (8.4-10.2) H 05/14/23 00:19 Total Bilirubin 0.4 mg/dL (0.2-1.3) 05/14/23 00:19 AST 20 U/L (17-59) 05/14/23 00:19 ALT 11 U/L (4-49) 05/14/23 00:19 Alkaline Phosphatase 80 U/L (38-126) 05/14/23 00:19 Total Protein 8.8 g/dL (6.3-8.2) H 05/14/23 00:19 Albumin 4.9 g/dL (3.5-5.0) 05/14/23 00:19 Urine Color Yellow 05/14/23 05:22 Urine Appearance Clear (Clear) 05/14/23 05:22 Urine pH 5.5 (5.0-8.0) 05/14/23 05:22 Ur Specific [place] 1.031 (1.001-1.035) 05/14/23 05:22 Urine Protein Trace (Negative) H 05/14/23 05:22 Urine Glucose (UA) Negative (Negative) 05/14/23 05:22 Urine Ketones Negative (Negative) 05/14/23 05:22 Urine Blood Negative (Negative) 05/14/23 05:22 Urine Nitrite Negative (Negative) 05/14/23 05:22 Urine Bilirubin Negative (Negative) 05/14/23 05:22 Urine Urobilinogen <2.0 mg/dL (<2.0) 05/14/23 05:22 Ur Leukocyte Esterase Negative (Negative) 05/14/23 05:22 Urine Opiates Screen Not Detected (NotDetected) 05/13/23 17:39 Ur Oxycodone Screen Not Detected (NotDetected) 05/13/23 17:39 Urine Methadone Screen Not Detected (NotDetected) 05/13/23 17:39 Ur Propoxyphene Screen Not Detected (NotDetected) 05/13/23 17:39 Ur Barbiturates Screen Not Detected (NotDetected) 05/13/23 17:39 U Tricyclic Antidepress Not Detected (NotDetected) 05/13/23 17:39 Ur Phencyclidine Scrn Not Detected (NotDetected) 05/13/23 17:39 Ur Amphetamines Screen Not Detected (NotDetected) 05/13/23 17:39 U Methamphetamines Scrn Not Detected (NotDetected) 05/13/23 17:39 U Benzodiazepines Scrn Not Detected (NotDetected) 05/13/23 17:39 Urine Cocaine Screen Not Detected (NotDetected) 05/13/23 17:39 U Marijuana (THC) Screen Detected (NotDetected) H 05/13/23 17:39 Coronavirus (PCR) Not Detected (Not Detectd) 05/14/23 00:19 Vital Signs Temp 97.7 F 05/20/23 06:32 Pulse 66 05/20/23 06:32 Resp 15 05/20/23 06:32 BP 143/86 05/20/23 06:32 Pulse Ox 97 05/19/23 06:35 FiO2 Patient Condition at Discharge: Stable Plan - Discharge Summary Discharge Rx Participant: No New Discharge Prescriptions: New risperiDONE ER inj [Perseris] 90 mg SQ QMONTHLY #1 each Continue Sertraline [Zoloft] 100 mg PO HS 30 Days #30 tab traZODone HCL [Desyrel] 50 mg PO HS 30 Days #30 tab Discontinued Ziprasidone [Geodon] 40 mg PO HS 30 Days #30 cap Discharge Medication List Sertraline [Zoloft] 100 mg PO HS 30 Days #30 tab 05/20/23 [Rx] risperiDONE ER inj [Perseris] 90 mg SQ QMONTHLY #1 each 05/20/23 [Rx] traZODone HCL [Desyrel] 50 mg PO HS 30 Days #30 tab 05/20/23 [Rx] Follow up Appointment(s)/Referral(s): [facility] [Outside] - 05/30/23 10:00 am ([place] ) Varinder Davis DO [Primary Care Provider] - 1-2 days Patient Instructions/Handouts: Psychotic Disorder (DC) Activity/Diet/Wound Care/Special Instructions: Avoid the use of street drugs and alcohol. Take all medications as prescribed. When you are in need of refills on your medications, please contact your medical provider and/or outpatient psychiatrist/provider to have this done. Please go to your scheduled outpatient appointment for aftercare treatment. If symptoms return or become worse, call the crisis line at and/or go to the nearest emergency room for evaluation. National Suicide Hotline 928. Discharge Disposition: HOME SELF-CARE
== END 2023-05-20 15:00 | disposition home or self-care (01) | DRG 885 ==
LOC: EC 16:12 → 3MHU 05-14 11:32
PROVIDERS: ADMIT Psychiatry & Neurology Psychiatry; ATTEND Psychiatry & Neurology Psychiatry
DX: F23 Brief psychotic disorder (principal); R45.851 Suicidal ideations; Z20.822 Contact with and (suspected) exposure to COVID-19; G47.00 Insomnia, unspecified; S61.512A Laceration without foreign body of left wrist, initial encounter; Z79.899 Other long term (current) drug therapy; F32.A Depression, unspecified; K21.9 Gastro-esophageal reflux disease without esophagitis; E66.9 Obesity, unspecified; Z68.38 Body mass index [BMI] 38.0-38.9, adult
CPT/HCPCS: 36415; 80053; 80306; 81003; 82075; 85025; 87635; 99285